=== PATIENT | female | born 1955 | race Caucasian/White ===

== ENCOUNTER 2022-02-28 04:47 | Day surgery (SDC) | payer OTHER ==
[2022-02-27 08:50] VITALS: BMI 22.2
[2022-02-28 12:29] VITALS: BP 147/72; PULSE 60; RESP 15; TEMP 98
== END 2022-02-28 13:11 | disposition home or self-care (01) ==
LOC: JASU-ENDO 04:47
PROVIDERS: ATTEND Internal Medicine Gastroenterology
PROC: 0DB78ZX Excision of Stomach, Pylorus, Via Natural or Artificial Opening Endoscopic, Diagnostic (ICD-10-PCS; 2022-02-28)
PROC: 0DB98ZX Excision of Duodenum, Via Natural or Artificial Opening Endoscopic, Diagnostic (ICD-10-PCS; principal; 2022-02-28 11:00)
DX: K29.70 Gastritis, unspecified, without bleeding (principal); K31.7 Polyp of stomach and duodenum; K44.9 Diaphragmatic hernia without obstruction or gangrene
CPT/HCPCS: 88305-TC; 88342-TC

== ENCOUNTER 2024-07-28 20:40 | Emergency (ER) | payer OTHER ==
[2024-07-28 20:50] VITALS: BP 155/85; PULSE 94; RESP 20; TEMP 98.4; BMI 23.6
[2024-07-28] MEDS ORDERED: KETOROLAC TROMETHAMINE 15 MG/ML VIAL ONE (21:59)
[2024-07-28] MEDS: SODIUM CHLORIDE 0.9% 500 ML INFUS.BAG IV ONE (22:31)
[2024-07-28] MEDS: KETOROLAC TROMETHAMINE 15 MG/ML VIAL IVPUSH ONE (22:31)
[2024-07-28 22:37] LABS: ABSOLUTE IMMATURE GRANULOCYTES 0.01 x10^3/uL (0.0-0.031); BASOPHILS # 0.02 x10^3/uL (0.01-0.08); EOSINOPHIL % 1.8 % (0.7-5.8); EOSINOPHILS # 0.11 x10^3/uL (0.04-0.36); HEMATOCRIT 41.9 % (34.1-44.9); HEMOGLOBIN 13.2 g/dL (11.2-15.7); MCHC 31.5 g/dl (32.2-35.5); MEAN CELL VOLUME 89.3 fl (79.4-94.8); MEAN PLT VOLUME 10.6 fl (9.4-12.3); MONOCYTE # 0.47 x10^3/uL (0.24-0.86); MONOCYTE % 7.8 % (4.7-12.5); PLATELET COUNT 216 x10^3/uL (182-369); RDW 14.6 % (12.4-16.4)
[2024-07-28 23:00] LABS: POTASSIUM 4.3 mmol/L (3.5-5.1)
[2024-07-28 23:02] LABS: INR 0.94 (0.83-1.09); PROTHROMBIN TIME (PATIENT) 10.3 SEC (9.7-13.0)
[2024-07-28 23:03] LABS: BLOOD UREA NITROGEN 13.1 mg/dL (7-18); CALCIUM 9.6 mg/dL (8.5-10.1)
[2024-07-28 23:05] LABS: ACTIVATED PTT 40.6 SECONDS (25.2-36.5)
[2024-07-28 23:06] LABS: CREATININE 0.9 mg/dL (0.55-1.3)
[2024-07-28 23:08] LABS: BILIRUBIN,TOTAL 0.2 mg/dL (0.2-1); TOT PROT 7.4 g/dl (6.4-8.2)
[2024-07-28 23:36] LABS: PH,URINE 7.5 (5.0-8.0); URINE APPEARANCE Clear; URINE BILIRUBIN Negative (NEGATIVE); URINE COLOR Yellow; URINE GLUCOSE (UA) Negative (NEGATIVE); URINE KETONE Negative (NEGATIVE); URINE LEUK ESTERASE Trace (NEGATIVE); URINE NITRITE Negative (NEGATIVE); URINE PROTEIN Negative (NEGATIVE); URINE UROBILINOGEN 0.2 mg/dL (0.2-1.0)
[2024-07-28] MEDS: morphine CARPU-JECT 2 MG/1 ML DISP.SYRIN IVPUSH ONE (23:42)
[2024-07-28] MEDS ORDERED: MORPHINE SULFATE 2 MG/ML SYRINGE ONE (23:44)
== END 2024-07-29 00:07 | disposition home or self-care (01) ==
LOC: JER 20:40
PROC: 3E033NZ Introduction of Analgesics, Hypnotics, Sedatives into Peripheral Vein, Percutaneous Approach (ICD-10-PCS; principal; 2024-07-28)
PROC: 3E0333Z Introduction of Anti-inflammatory into Peripheral Vein, Percutaneous Approach (ICD-10-PCS; 2024-07-28)
DX: N20.0 Calculus of kidney (principal); R10.9 Unspecified abdominal pain
CPT/HCPCS: 36415; 74176-TC; 80053; 81003; 83605; 83690; 84484; 85025; 85610; 85730; 86850; 86900; 86901; 87086; 99285-25

== ENCOUNTER 2024-08-27 06:10 | Day surgery (SDC) | payer OTHER ==
[2024-08-24 10:56] VITALS: BMI 23.4
[2024-08-27] MEDS ORDERED: MIDAZOLAM HCL 2 MG/2 ML SINGLE DOSE VIAL ONE ×2 (08:43→08:56)
[2024-08-27] MEDS: ceFAZolin SODIUM 1 GM VIAL IVPB ONE (08:48)
[2024-08-27 09:24] VITALS: TEMP 97.3
[2024-08-27 11:33] VITALS: BP 150/62; PULSE 75; RESP 18
== END 2024-08-27 11:45 | disposition home or self-care (01) ==
LOC: JASU-SURG 06:10
PROVIDERS: ATTEND Urology
PROC: 0TF3XZZ Fragmentation in Right Kidney Pelvis, External Approach (ICD-10-PCS; principal; 2024-08-27 07:30)
DX: N20.0 Calculus of kidney (principal)